=== PATIENT | female | born 1995 | race Caucasian/White ===

== ENCOUNTER 2018-09-11 18:21 | Emergency (ER) | payer MEDICAID ==
[2018-09-11 18:36] VITALS: BP 114/70; PULSE 77; RESP 18; TEMP 98.7; O2SAT 100
--- NOTE | 2018-09-11 19:44 | C.PDOC ---
History Of Present Illness 22 year old female presents to the ED for evaluation of right index finger injury sustained yesterday status post closing car door on right hand. Denies any weakness, numbness, or sensory changes. Time Seen by Provider: 09/11/18 18:39 Chief Complaint (Nursing): Finger,Hand,&Wrist History Per: Patient History/Exam Limitations: no limitations Onset/Duration Of Symptoms: Days (1) Current Symptoms Are (Timing): Still Present Quality: "Pain" Past Medical History Reviewed: Historical Data, Nursing Documentation, Vital Signs Vital Signs: Last Vital Signs Temp 98.7 F 09/11/18 18:34 Pulse 77 09/11/18 18:34 Resp 18 09/11/18 18:34 BP 114/70 09/11/18 18:34 Pulse Ox 100 09/11/18 18:34 - Medical History PMH: No Chronic Diseases Other Surgeries: Hx of surgeries Family History: States: No Known Family Hx - Social History Hx Alcohol Use: No Hx Substance Use: No - Immunization History Hx Tetanus Toxoid Vaccination: No Hx Influenza Vaccination: No Hx Pneumococcal Vaccination: No Review Of Systems Except As Marked, All Systems Reviewed And Found Negative. Constitutional: Negative for: Fever, Chills Musculoskeletal: Positive for: Hand Pain (right index finger injury ) Neurological: Negative for: Weakness, Numbness Physical Exam - Physical Exam Appears: Well, Non-toxic, No Acute Distress Skin: Normal Color, Warm Head: Normacephalic Eye(s): bilateral: PERRL Extremity: Normal ROM (Right 2nd finger), Tenderness (over Right 2nd DIPJ with mild contusion/trace ecchymoses. NO palpable deofmrity. no neurovascular deficist distally to injury.), Capillary Refill (less than 2sec to right index), No Deformity, No Swelling Pulses: Right Radial: Normal Neurological/Psych: Oriented x3, Normal Speech, Normal Motor, Normal Sensation, Normal Reflexes ED Course And Treatment O2 Sat by Pulse Oximetry: 100 - Other Rad Right index finger X-Ray: Interpreted by Me, Viewed By Me Interpretation: (-) acute fx or dislocation Progress Note: On re-eval, pt is afebrile, hemodynamicaly stable. Right hand: tendernes sover Right 2nd DIPJ with mild trace ecchymoses. NO palpable deformity, no neurovascular deficits. Xray review (-) acute fx or disloctaion. Aluminium finger splint applied to Right index finger. Pt advised and ref. To f/u with Hand spec in 2-3 days for re-eavll as need Disposition Counseled Patient/Family Regarding: Diagnosis, Need For Followup - Disposition Referrals: Padmaja Le MD [Staff Provider] - Disposition: HOME/ ROUTINE Disposition Time: 18:55 Condition: STABLE Additional Instructions: Light duty Ibuprofen for pain Follow up with hand specialist in 2-3 days for re-evaluation. return if any new changes. Instructions: Finger Sprain (DC) Forms: [employer] (Bulgarian) - Clinical Impression Clinical Impression: Finger contusion - PA / [employer] / Resident Statement MD/DO has reviewed & agrees with the documentation as recorded. - Scribe Statement The provider has reviewed the documentation as recorded by the Scribe Tori Zamorano All medical record entries made by the Scribe were at my direction and personally dictated by me. I have reviewed the chart and agree that the record accurately reflects my personal performance of the history, physical exam, medical decision making, and the department course for this patient. I have also personally directed, reviewed, and agree with the discharge instructions and disposition.
--- NOTE | 2018-09-12 07:50 | RAD ---
Date of service: 09/11/2018 PROCEDURE: Right Index finger radiographs. HISTORY: injury COMPARISON: None. TECHNIQUE: AP radiograph of the right hand, as well as spot oblique and lateral images of index finger were obtained. FINDINGS: RIGHT INDEX FINGER: Normal right index finger, without fracture or focal lesion. Remainder of the right hand (as seen on the AP view) grossly intact. JOINTS: Normal. SOFT TISSUES: Normal. OTHER FINDINGS: None. IMPRESSION: Normal right index finger radiographs.
== END 2018-09-11 19:52 | disposition home or self-care (01) ==
LOC: C.ER 18:21
DX: S60.021A Contusion of right index finger without damage to nail, initial encounter (principal); W23.0XXA Caught, crushed, jammed, or pinched between moving objects, initial encounter